=== PATIENT | female | born 1995 | race American Indian/Alaskan Native ===

== ENCOUNTER 2018-07-06 14:35 | Emergency (ER) | payer SELFPAY ==
[2018-07-06 15:29] VITALS: BP 127/87
--- NOTE | 2018-07-06 15:30 | Emergency Department Report ---
Chief Complaint: Headache Stated Complaint: SEVERE HEADACHE/BLURRED VISION/VOMITING Time Seen by Provider: 07/06/18 15:27 - HPI History of Present Illness: This is a 23 y.o. female that presents with headache x 1 week. Patient reports never having a headache like this before. - ROS Review of Systems: headache - Exam Vital Signs: Vital Signs 07/06/18 15:27 Temperature 98 F Pulse Rate 73 Respiratory 18 Rate Blood Pressure 127/87 O2 Sat by Pulse 99 Oximetry MSE screening note: Focused history and physical exam performed. Due to findings the following was ordered: labs and CT of head w/o contrast Fast track for further evaluation. ED Disposition for MSE Condition: Stable
[2018-07-06 16:05] LABS: HCG Qualitative,Urine Negative (Negative)
== END 2018-07-06 16:20 | disposition left against medical advice (07) ==
LOC: ED 14:35
DX: R51 Headache (principal); Z53.21 Procedure and treatment not carried out due to patient leaving prior to being seen by health care provider
CPT/HCPCS: 81025

== ENCOUNTER 2020-07-01 02:22 | Inpatient (IN) | payer MEDICAID ==
[2020-07-01] MEDS ORDERED: LACTATED RINGERS 1,000 ML ONE (02:56)
[2020-07-01] MEDS ORDERED: AMPICILLIN/NS 2 GM/100 ML 2 GM/100 ML BAG IV ONE ×2 (02:56→03:02)
[2020-07-01] MEDS ORDERED: ONDANSETRON 4 MG/2 ML INJ IV PRN (03:02)
[2020-07-01] MEDS ORDERED: ePHEDrine SULFATE 50 MG/1 ML INJ IV PRN ×2 (03:02→04:04)
[2020-07-01] MEDS ORDERED: MINERAL OIL 30 ML ORAL LIQD PO PRN (03:02)
[2020-07-01] MEDS ORDERED: fentaNYL 100 MCG/2 ML INJ IV PRN (03:02)
[2020-07-01] MEDS ORDERED: TERBUTALINE 1 MG/1 ML INJ SUB-Q PRN (03:02)
[2020-07-01] MEDS ORDERED: LIDOCAINE (2%) 20 MG/1 ML VIAL 20 ML MDV INFILTRATI ONE ×2 (03:02→10:29)
[2020-07-01] MEDS: LACTATED RINGERS 1,000 ML IV SCH ×2 (03:22→05:09)
--- NOTE | 2020-07-01 03:37 | History and Physical Report ---
History of Present Illness Date of examination: 07/01/20 Date of admission: 07/01/20 02:53 Chief complaint: contractions History of present illness: 38 yo at 40w4d with reportedly benign PNC with [facility] (need records) c/b Class II Obesity presenting with contractions, found to be in active labor. Denies LOF or VB. Denies PIH symptoms. Past History Past Medical History: no pertinent history Past Surgical History: no surgical history Family/Genetic History: none Social history: no significant social history - Obstetrical History : 2 Para: 0 Induced : 1 Number of Living Children: 0 Medications and Allergies Allergies Allergy/AdvReac Type Severity Reaction Status Date / Time No Known Allergies Allergy Unverified 07/06/18 14:38 Home Medications Medication Instructions Recorded Confirmed Last Taken Type Plus Tablet 1 tab PO DAILY 07/01/20 07/01/20 Unknown History Active Meds: Active Medications Ephedrine Sulfate (Ephedrine Sulfate 50 Mg/1 Ml Inj) 10 mg IV Q2M PRN PRN Reason: Hypotension Fentanyl (Fentanyl 100 Mcg/2 Ml Inj) 100 mcg IV Q2H PRN PRN Reason: Pain,Severe (7-10) LABOR PAIN Last Admin: 07/01/20 03:23 Dose: 100 mcg Documented by: Lactated Ringer's (Lactated Ringers) 1,000 mls @ 125 mls/hr IV DIRECT VERÓNICA Last Admin: 07/01/20 03:22 Dose: 125 mls/hr Documented by: Oxytocin/Sodium Chloride (Pitocin/Ns 30 Unit/500ml) 30 units in 500 mls @ 40 mls/hr IV TITR VERÓNICA; Protocol Ampicillin Sodium (Ampicillin/Ns 2 Gm/100 Ml) 2 gm in 100 mls @ 100 mls/hr IV ONCE ONE; Protocol Stop: 07/01/20 04:01 Last Admin: 07/01/20 03:21 Dose: 100 mls/hr Documented by: Mineral Oil (Mineral Oil 30 Ml Oral Liqd) 30 ml PO QHS PRN PRN Reason: Constipation Ondansetron HCl (Ondansetron 4 Mg/2 Ml Inj) 4 mg IV Q8H PRN PRN Reason: Nausea And Vomiting Terbutaline Sulfate (Terbutaline 1 Mg/1 Ml Inj) 0.25 mg SUB-Q ONCE PRN PRN Reason: Hyperstimulation/Hypertonicity Review of Systems All systems: negative (expect HPI) - Vital Signs Vital signs: Vital Signs Temp Resp 98.8 F 18 07/01/20 02:41 07/01/20 02:41 Temp Pulse Resp BP Pulse Ox 98.4 F 98 H 18 98 07/01/20 03:28 07/01/20 03:32 07/01/20 03:23 07/01/20 03:32 - Physical Exam Abdomen: Positive: normal appearance, normal bowel sounds Uterus: Positive: enlarged (gravid) - Obstetrical FHR: category 1 Uterine Contraction Monitor Mode: External Cervical Dilatation: 6 Uterine Contraction Pattern: Regular Results All other labs normal. Assessment and Plan - Patient Problems (1) Active labor at term Current Visit: Yes Status: Acute Plan to address problem: --Expectant management until PNC obtained ([facility]) --Stadol prn pain, epidural available --Anticipate --Amp given GBS unknown
[2020-07-01 03:39] LABS: Hematocrit 38.4 % (30.3-42.9); Hemoglobin 13.2 gm/dl (10.1-14.3); Mean Corpuscular HGB Conc 34 % (30-34); Mean Corpuscular Volume 95 fl (79-97); Platelet Count 189 K/mm3 (140-440); Red Blood Count 4.06 M/mm3 (3.65-5.03); Red Cell Distribution Width 14.7 % (13.2-15.2)
[2020-07-01 03:42] LABS: Bacteria,Urine 2+ /HPF (Negative); Bilirubin,Urine NEG (Negative); Blood,Urine LG (Negative); Color,Urine Red (Yellow); Mucus,Urine FEW /HPF; Urobilinogen,Urine < 2.0 mg/dL (<2.0)
[2020-07-01 03:43] LABS: RBC,Urine > 182.0 /HPF (0.0-6.0)
[2020-07-01 03:51] LABS: Amphetamine Screen,Urine PRESUMPTIVE NEGATIVE; Benzodiazepines Screen,Urine PRESUMPTIVE NEGATIVE; Cannabinoid Screen,Urine PRESUMPTIVE NEGATIVE; Cocaine Screen,Urine PRESUMPTIVE NEGATIVE; Methadone Screen,Urine PRESUMPTIVE NEGATIVE; Opiate Screen,Urine PRESUMPTIVE NEGATIVE
[2020-07-01] MEDS ORDERED: OXYTOCIN DRIP 30 UNITS/500 ML BAG IV SCH ×2 (04:00→11:00)
[2020-07-01] MEDS ORDERED: NALOXONE 2 MG/2 ML INJ IV PRN (04:04)
--- NOTE | 2020-07-01 04:04 | Anesthesia Consultation ---
Anesthesia Consult and Med Hx Date of service: 07/01/20 - Airway Anesthetic Teeth Evaluation: Good ROM Head & Neck: Adequate Mental/Hyoid Distance: Adequate Mallampati Class: Class II Intubation Access Assessment: Probably Good - Pulmonary Exam CTA: Yes - Cardiac Exam Cardiac Exam: RRR - Pre-Operative Health Status ASA Pre-Surgery Classification: ASA2 Proposed Anesthetic Plan: Epidural - Pulmonary Hx Asthma: No COPD: No Hx Pneumonia: No - Endocrine Hx End Stage Renal Disease: No - Other Systems Hx Alcohol Use: No Hx Obesity: Yes
[2020-07-01 04:09] LABS: Hepatitis C Virus Antibody Non-Reactive (NonReactive)
--- NOTE | 2020-07-01 04:23 | Progress Note ---
Labor Epidural - Labor Epidural Start Time: 04:10 Stop Time: 04:21 Performed by:: MEETA ANGUIANO Procedure: Patient is requesting epidural for labor pain. H&P, and labs reviewed. Procedure explained, questions answered, consent obtained. Patient in sitting position with blood pressure cuff and pulse ox on and working. Timeout performed immediately before start of procedure. Sterile chlorahexadine 0.5% prep/drape. 3 mL 1% lidocaine skin wheal at L[3]-L[4]. 18-gauge Tuohy epidural needle advanced to [id number] with saline at [7] cm. Epidural dexmedetomidine [30] mcg administered. Epidural catheter advanced to [12] cm, negative aspiration for blood and csf, negative test dose 3 ml 1.5% lidocaine with epinephrine. Sterile steri-strips and tegaderm applied, followed by tape reinforcement. Patient tolerated procedure well. Ed PATEL
[2020-07-01] MEDS ORDERED: fentaNYL-BUPIV 2 MCG/ML-0.125% 200 MCG/100 ML BAG EPIDURAL SCH (05:00)
[2020-07-01] MEDS ORDERED: AMPICILLIN/NS 1 GM/50 ML 1 GM/50 ML BAG IV SCH (07:00)
--- NOTE | 2020-07-01 10:09 | Progress Note ---
Assessment and Plan A: IUP at 40 4/7 weeks Category I tracing Active Labor GBS Negative P: AROM IUPC placed Start Low-Dose Pitocin Augmentation Anticipate Subjective - Subjective Date of service: 07/01/20 Patient reports: movement normal, other (Resting well under epidural anesthesia.), no new complaints Objective - Vital Signs Vital Signs: Vital Signs - 12hr 07/01/20 07/01/20 07/01/20 02:41 03:23 03:27 Temperature 98.8 F Pulse Rate 101 H Respiratory 18 18 Rate Blood Pressure Blood Pressure [Left] O2 Sat by Pulse 99 Oximetry 07/01/20 07/01/20 07/01/20 03:28 03:32 03:33 Temperature 98.4 F Pulse Rate 98 H 102 H Respiratory Rate Blood Pressure Blood Pressure [Left] O2 Sat by Pulse 98 91 Oximetry 07/01/20 07/01/20 07/01/20 03:34 03:37 03:41 Temperature Pulse Rate 105 H 102 H 105 H Respiratory Rate Blood Pressure 139/85 Blood Pressure [Left] O2 Sat by Pulse 100 91 Oximetry 07/01/20 07/01/20 07/01/20 03:42 03:47 03:52 Temperature Pulse Rate 98 H 111 H 108 H Respiratory Rate Blood Pressure Blood Pressure [Left] O2 Sat by Pulse 100 96 100 Oximetry 07/01/20 07/01/20 07/01/20 03:57 03:59 04:02 Temperature Pulse Rate 108 H 96 H 108 H Respiratory Rate Blood Pressure Blood Pressure [Left] O2 Sat by Pulse 98 94 100 Oximetry 07/01/20 07/01/20 07/01/20 04:07 04:08 04:12 Temperature Pulse Rate 108 H 108 H 111 H Respiratory Rate Blood Pressure Blood Pressure [Left] O2 Sat by Pulse 96 93 97 Oximetry 07/01/20 07/01/20 07/01/20 04:17 04:18 04:21 Temperature Pulse Rate 96 H 110 H 113 H Respiratory Rate Blood Pressure 129/88 Blood Pressure [Left] O2 Sat by Pulse 98 89 Oximetry 07/01/20 07/01/20 07/01/20 04:22 04:24 04:27 Temperature Pulse Rate 109 H 109 H 106 H Respiratory Rate Blood Pressure 129/79 123/78 Blood Pressure [Left] O2 Sat by Pulse 98 97 Oximetry 03/12/1407/01/20 07/01/20 04:28 04:30 04:32 Temperature Pulse Rate 104 H 93 H 93 H Respiratory Rate Blood Pressure 125/74 Blood Pressure [Left] O2 Sat by Pulse 79 L 85 Oximetry 07/01/20 07/01/20 07/01/20 04:33 04:36 04:37 Temperature Pulse Rate 94 H 93 H 94 H Respiratory Rate Blood Pressure 122/68 128/69 Blood Pressure [Left] O2 Sat by Pulse 80 L 87 Oximetry 07/01/20 07/01/20 07/01/20 04:39 04:42 04:45 Temperature Pulse Rate 88 96 H 89 Respiratory Rate Blood Pressure 120/62 120/62 122/64 Blood Pressure [Left] O2 Sat by Pulse 97 Oximetry 07/01/20 07/01/20 07/01/20 04:47 04:48 04:51 Temperature Pulse Rate 94 H 91 H 97 H Respiratory Rate Blood Pressure 121/62 124/59 Blood Pressure [Left] O2 Sat by Pulse 98 Oximetry 07/01/20 07/01/20 07/01/20 04:52 04:54 04:57 Temperature Pulse Rate 99 H 93 H 92 H Respiratory Rate Blood Pressure 122/60 120/59 Blood Pressure [Left] O2 Sat by Pulse 98 99 Oximetry 07/01/20 07/01/20 07/01/20 05:00 05:02 05:03 Temperature Pulse Rate 93 H 92 H 90 Respiratory Rate Blood Pressure 118/59 113/57 Blood Pressure [Left] O2 Sat by Pulse 98 Oximetry 07/01/20 07/01/20 07/01/20 05:06 05:07 05:09 Temperature Pulse Rate 90 89 94 H Respiratory Rate Blood Pressure 117/60 118/62 Blood Pressure [Left] O2 Sat by Pulse 96 Oximetry 07/01/20 07/01/20 07/01/20 05:12 05:15 05:17 Temperature Pulse Rate 91 H 90 92 H Respiratory Rate Blood Pressure 116/62 117/62 Blood Pressure [Left] O2 Sat by Pulse 97 96 Oximetry 07/01/20 07/01/20 07/01/20 05:18 05:21 05:22 Temperature Pulse Rate 96 H 93 H 96 H Respiratory Rate Blood Pressure 114/60 108/59 Blood Pressure [Left] O2 Sat by Pulse 96 Oximetry 07/01/20 07/01/20 07/01/20 05:24 05:27 05:30 Temperature Pulse Rate 99 H 91 H 94 H Respiratory Rate Blood Pressure 115/63 126/67 121/64 Blood Pressure [Left] O2 Sat by Pulse 97 Oximetry 07/01/20 07/01/20 07/01/20 05:32 05:33 05:36 Temperature Pulse Rate 97 H 95 H 93 H Respiratory Rate Blood Pressure 113/61 124/70 Blood Pressure [Left] O2 Sat by Pulse 97 Oximetry 07/01/20 07/01/20 07/01/20 05:37 05:39 05:42 Temperature Pulse Rate 97 H 93 H 95 H Respiratory Rate Blood Pressure 124/69 121/66 Blood Pressure [Left] O2 Sat by Pulse 99 98 Oximetry 07/01/20 07/01/20 07/01/20 05:45 05:47 05:48 Temperature Pulse Rate 93 H 92 H 94 H Respiratory Rate Blood Pressure 125/65 132/66 Blood Pressure [Left] O2 Sat by Pulse 98 Oximetry 07/01/20 07/01/20 07/01/20 05:51 05:52 05:54 Temperature Pulse Rate 94 H 91 H 95 H Respiratory Rate Blood Pressure 128/66 127/65 Blood Pressure [Left] O2 Sat by Pulse 98 Oximetry 07/01/20 07/01/20 07/01/20 05:57 06:00 06:02 Temperature Pulse Rate 94 H 96 H 96 H Respiratory Rate Blood Pressure 137/86 141/88 Blood Pressure [Left] O2 Sat by Pulse 98 99 Oximetry 07/01/20 07/01/20 07/01/20 06:07 06:12 06:17 Temperature Pulse Rate 90 93 H 94 H Respiratory Rate Blood Pressure Blood Pressure [Left] O2 Sat by Pulse 98 98 98 Oximetry 07/01/20 07/01/20 07/01/20 06:22 06:27 06:32 Temperature Pulse Rate 95 H 98 H 95 H Respiratory Rate Blood Pressure Blood Pressure [Left] O2 Sat by Pulse 98 98 97 Oximetry 07/01/20 07/01/20 07/01/20 06:34 06:37 06:42 Temperature Pulse Rate 95 H 97 H 94 H Respiratory Rate Blood Pressure 130/78 Blood Pressure [Left] O2 Sat by Pulse 97 95 Oximetry 07/01/20 07/01/20 07/01/20 06:47 06:52 06:57 Temperature Pulse Rate 113 H 98 H 96 H Respiratory Rate Blood Pressure Blood Pressure [Left] O2 Sat by Pulse 95 98 97 Oximetry 07/01/20 07/01/20 07/01/20 07:02 07:04 07:07 Temperature Pulse Rate 98 H 99 H 109 H Respiratory Rate Blood Pressure 132/81 Blood Pressure [Left] O2 Sat by Pulse 98 99 Oximetry 07/01/20 07/01/20 07/01/20 07:09 07:12 07:17 Temperature 98.8 F Pulse Rate 97 H 101 H 101 H Respiratory 18 Rate Blood Pressure Blood Pressure 132/81 [Left] O2 Sat by Pulse 99 98 99 Oximetry 07/01/20 07/01/20 07/01/20 07:22 07:27 07:32 Temperature Pulse Rate 106 H 108 H 98 H Respiratory Rate Blood Pressure Blood Pressure [Left] O2 Sat by Pulse 99 99 100 Oximetry 07/01/20 07/01/20 07/01/20 07:34 07:37 07:42 Temperature Pulse Rate 96 H 102 H 104 H Respiratory Rate Blood Pressure 131/80 Blood Pressure [Left] O2 Sat by Pulse 99 99 Oximetry 07/01/20 07/01/20 07/01/20 07:47 07:52 07:57 Temperature Pulse Rate 102 H 102 H 102 H Respiratory Rate Blood Pressure Blood Pressure [Left] O2 Sat by Pulse 99 98 99 Oximetry 07/01/20 07/01/20 07/01/20 08:02 08:03 08:07 Temperature Pulse Rate 100 H 100 H 105 H Respiratory Rate Blood Pressure 131/77 Blood Pressure [Left] O2 Sat by Pulse 99 98 Oximetry 07/01/20 07/01/20 07/01/20 08:12 08:17 08:22 Temperature Pulse Rate 109 H 105 H 114 H Respiratory Rate Blood Pressure Blood Pressure [Left] O2 Sat by Pulse 99 97 99 Oximetry 07/01/20 07/01/20 07/01/20 08:27 08:32 08:33 Temperature Pulse Rate 103 H 106 H 102 H Respiratory Rate Blood Pressure 135/73 Blood Pressure [Left] O2 Sat by Pulse 100 99 Oximetry 07/01/20 07/01/20 07/01/20 08:37 08:42 08:47 Temperature Pulse Rate 111 H 107 H 106 H Respiratory Rate Blood Pressure Blood Pressure [Left] O2 Sat by Pulse 98 98 100 Oximetry 07/01/20 07/01/20 07/01/20 08:52 08:57 09:02 Temperature Pulse Rate 106 H 105 H 103 H Respiratory Rate Blood Pressure Blood Pressure [Left] O2 Sat by Pulse 99 99 99 Oximetry 07/01/20 07/01/20 07/01/20 09:03 09:07 09:12 Temperature Pulse Rate 108 H 108 H 106 H Respiratory Rate Blood Pressure 135/74 Blood Pressure [Left] O2 Sat by Pulse 99 100 Oximetry 07/01/20 07/01/20 07/01/20 09:17 09:22 09:27 Temperature Pulse Rate 111 H 108 H 107 H Respiratory Rate Blood Pressure Blood Pressure [Left] O2 Sat by Pulse 100 99 99 Oximetry 07/01/20 07/01/20 07/01/20 09:32 09:33 09:37 Temperature Pulse Rate 111 H 111 H 108 H Respiratory Rate Blood Pressure 138/78 Blood Pressure [Left] O2 Sat by Pulse 99 98 Oximetry 07/01/20 07/01/20 07/01/20 09:42 09:47 09:52 Temperature Pulse Rate 111 H 122 H 120 H Respiratory Rate Blood Pressure Blood Pressure [Left] O2 Sat by Pulse 99 99 100 Oximetry 07/01/20 07/01/20 07/01/20 09:57 10:02 10:03 Temperature Pulse Rate 129 H 127 H 127 H Respiratory Rate Blood Pressure 118/60 Blood Pressure [Left] O2 Sat by Pulse 99 98 Oximetry - Exam Breasts: normal Cardiovascular: Regular rate Lungs: Clear to auscultation, Normal air movement Abdomen: Present: normal appearance, soft Uterus: Present: normal, firm, fundal height above umbilicus FHR: category 1 Uterine Contraction Monitor Mode: External Cervical Dilatation: 8 (Large amount of thin green meconium stained fluid noted upon AROM at 0958. ) Cervical Effacement Percentage: 100 station: 0 Uterine Contraction Pattern: Irregular Uterine Tone Measurement Phase: Resting Uterine Contraction Intensity: Moderate Extremities: normal - Labs Labs: Abnormal Labs 07/01/20 07/01/20 03:20 03:21 WBC 12.8 H Urine pH 8.0 H Urine WBC (Auto) 25.0 H U Epithel Cells (Auto) 17.0 H Laboratory Results - last 24 hr 07/01/20 07/01/20 07/01/20 03:20 03:20 03:21 WBC 12.8 H RBC 4.06 Hgb 13.2 Hct 38.4 MCV 95 MCH 32 MCHC 34 RDW 14.7 Plt Count 189 Urine Color Red Urine Turbidity Slightly-cloudy Urine pH 8.0 H Ur Specific [place] 1.005 Urine Protein 100 mg/dl Urine Glucose (UA) 50 Urine Ketones Neg Urine Blood Lg Urine Nitrite Neg Urine Bilirubin Neg Urine Urobilinogen < 2.0 Ur Leukocyte Esterase Sm Urine WBC (Auto) 25.0 H Urine RBC (Auto) > 182.0 U Epithel Cells (Auto) 17.0 H Urine Bacteria (Auto) 2+ Urine Mucus Few Urine Yeast (Budding) 1+ Urine Opiates Screen Presumptive negative Urine Methadone Screen Presumptive negative Ur Barbiturates Screen Presumptive negative Ur Phencyclidine Scrn Presumptive negative Ur Amphetamines Screen Presumptive negative U Benzodiazepines Scrn Presumptive negative Urine Cocaine Screen Presumptive negative U Marijuana (THC) Screen Presumptive negative Drugs of Abuse Note Disclamer Syphilis IgG Antibody Hep Bs Antigen Hepatitis C Antibody HIV 1&2 Antibody Rapid HIV P24 Antigen Rubella IgG Antibody Blood Type Antibody Screen 07/01/20 07/01/20 03 03:21 03:21 03:21 WBC RBC Hgb Hct MCV MCH MCHC RDW Plt Count Urine Color Urine Turbidity Urine pH Ur Specific [place] Urine Protein Urine Glucose (UA) Urine Ketones Urine Blood Urine Nitrite Urine Bilirubin Urine Urobilinogen Ur Leukocyte Esterase Urine WBC (Auto) Urine RBC (Auto) U Epithel Cells (Auto) Urine Bacteria (Auto) Urine Mucus Urine Yeast (Budding) Urine Opiates Screen Urine Methadone Screen Ur Barbiturates Screen Ur Phencyclidine Scrn Ur Amphetamines Screen U Benzodiazepines Scrn Urine Cocaine Screen U Marijuana (THC) Screen Drugs of Abuse Note Syphilis IgG Antibody Nonreactive Hep Bs Antigen Non-reactive Hepatitis C Antibody HIV 1&2 Antibody Rapid HIV P24 Antigen Rubella IgG Antibody Blood Type B POSITIVE Antibody Screen Negative 07/01/20 07/01/20 03:21 03:21 WBC RBC Hgb Hct MCV MCH MCHC RDW Plt Count Urine Color Urine Turbidity Urine pH Ur Specific [place] Urine Protein Urine Glucose (UA) Urine Ketones Urine Blood Urine Nitrite Urine Bilirubin Urine Urobilinogen Ur Leukocyte Esterase Urine WBC (Auto) Urine RBC (Auto) U Epithel Cells (Auto) Urine Bacteria (Auto) Urine Mucus Urine Yeast (Budding) Urine Opiates Screen Urine Methadone Screen Ur Barbiturates Screen Ur Phencyclidine Scrn Ur Amphetamines Screen U Benzodiazepines Scrn Urine Cocaine Screen U Marijuana (THC) Screen Drugs of Abuse Note Syphilis IgG Antibody Hep Bs Antigen Hepatitis C Antibody Non-reactive HIV 1&2 Antibody Rapid Non react HIV P24 Antigen Non react Rubella IgG Antibody Immune Blood Type Antibody Screen
--- NOTE | 2020-07-01 11:29 | Procedure Note ---
OB Delivery Note - Delivery Date of Delivery: 07/01/20 (1103) Surgeon: DEANDRE TORIBIO Estimated blood loss: 300cc - Vaginal Delivery presentation: vertex Delivery position: OA Intrapartum events: meconium Delivery induction: none Delivery augmentation: rupture of membranes, pitocin Delivery monitor: external FHT, internal uterine Route of delivery: Delivery placenta: spontaneous Delivery cord: 3 umbilical vessels Episiotomy: none Delivery laceration: other (right labial) Delivery repair: vicryl Anesthesia: epidural Delivery comments: of a live 8'4 female with Apgars of 7 and 9 over a right labial laceration under epidural anesthesia at 1103 on 07/01/2020. Cord double clamped and cut by ALVIN Toribio. Infant directly to warmer to awaiting WEST RN. Spontaneous delivery of placenta complete and intact with [place] side presenting at 1116. Fundus is firm and midline, located 4 below the U. Lochia is scant. Right labial laceration repaired with 2-0 vicryl on a SH. Placenta to be discarded. - A at 1 minute: 7 at 5 minutes: 9 Infant Gender: Female (8'4)
[2020-07-01] MEDS ORDERED: PROMETHAZINE 25 MG TAB PO PRN (12:00)
[2020-07-01] MEDS ORDERED: diphenhydrAMINE 25 MG CAP PO PRN (12:00)
[2020-07-01] MEDS ORDERED: WITCH HAZEL/ GLYCERIN PAD TP PRN (12:00)
[2020-07-01] MEDS ORDERED: HYDROcodone/ACETAMINOPHEN 5-325 MG TAB PO PRN (12:00)
[2020-07-01] MEDS ORDERED: oxyCODONE /ACETAMINOPHEN 5-325MG TAB PO PRN (12:00)
[2020-07-01] MEDS ORDERED: LANOLIN/ZINC/DIMETHICONE (LANSINOH) 7 GM TP PRN (12:00)
[2020-07-01] MEDS: IBUPROFEN 600 MG TAB PO SCH ×2 (14:43→23:28)
[2020-07-01] MEDS: AMPICILLIN/NS 2 GM/100 ML 2 GM/100 ML BAG IV SCH ×2 (14:45→20:00)
[2020-07-01] MEDS ORDERED: SODIUM CHLORIDE 0.9% 1000 ML 1,000 ML IV SCH (19:45)
[2020-07-02 00:25] LABS: Hematocrit 35.3 % (30.3-42.9); Hemoglobin 12.1 gm/dl (10.1-14.3)
[2020-07-02] MEDS: AMPICILLIN/NS 2 GM/100 ML 2 GM/100 ML BAG IV SCH ×4 (01:29→20:08)
[2020-07-02] MEDS: IBUPROFEN 600 MG TAB PO SCH ×4 (05:09→23:05)
--- NOTE | 2020-07-02 10:27 | Progress Note ---
Assessment and Plan - Patient Problems (1) Status post normal vaginal delivery Current Visit: Yes Status: Acute Plan to address problem: Continue routine PP orders Continue Abt therapy as ordered Anticipate d/c in 24 hrs if remains afebrile Subjective - Subjective Date of service: 07/02/20 Principal diagnosis: S/P ; PPD#1 Interval history: See admission H & P; OB delivery summary and PP progress notes Patient reports: appetite normal, voiding normally, pain well controlled, flatus, ambulating normally : doing well, bottle feeding (and ) Objective - Vital Signs Latest vital signs: Vital Signs Temp Pulse Resp BP BP Pulse Ox 07/02/20 08:48 97.6 F 83 20 98/56 98 07/02/20 01:20 97.5 F L 99 H 20 112/63 99 07/01/20 20:11 97.2 F L 102 H 20 103/59 96 07/01/20 17:15 112 H 07/01/20 16:10 99.1 F 129 H 20 112/55 92 07/01/20 14:05 101.5 F H 116 H 20 130/75 98 07/01/20 13:44 116 H 120/74 07/01/20 13:41 111 H 141/74 07/01/20 13:30 99.1 F 118 H 16 133/71 99 07/01/20 13:26 118 H 133/71 07/01/20 13:11 121 H 137/70 07/01/20 13:07 122 H 136/63 07/01/20 13:00 127 H 137/63 07/01/20 12:58 133 H 178/82 07/01/20 12:55 113 H 133/70 07/01/20 12:53 102.5 F H 07/01/20 12:32 110 H 100 07/01/20 12:27 114 H 143/76 100 07/01/20 12:22 114 H 100 07/01/20 12:17 126 H 98 07/01/20 12:12 128 H 148/65 99 07/01/20 12:07 121 H 100 07/01/20 12:02 121 H 99 07/01/20 11:57 125 H 147/68 99 07/01/20 11:52 124 H 99 07/01/20 11:47 125 H 100 07/01/20 11:42 132 H 99 03/08/21 11:41 137 H 155/67 07/01/20 11:39 142 H 151/67 07/01/20 11:37 138 H 148/63 98 07/01/20 11:36 123 H 173/74 07/01/20 11:33 127 H 114/87 07/01/20 11:32 155 H 121/71 99 07/01/20 11:29 125 H 115/65 07/01/20 11:27 126 H 127/69 99 07/01/20 11:25 130 H 130/75 07/01/20 11:23 125 H 135/67 07/01/20 11:22 126 H 100 07/01/20 11:17 122 H 100 07/01/20 11:12 121 H 100 07/01/20 11:07 122 H 100 07/01/20 11:04 153 H 148/70 07/01/20 11:02 169 H 100 07/01/20 10:57 128 H 99 07/01/20 10:52 148 H 100 07/01/20 10:47 171 H 99 07/01/20 10:44 56 L 93 07/01/20 10:42 142 H 100 07/01/20 10:37 131 H 100 07/01/20 10:33 139 H 135/89 07/01/20 10:32 162 H 100 07/01/20 10:27 122 H 99 Intake and Output 07/01/20 07/02/20 07/02/20 23:59 07:59 15:59 Intake Total 590 340 240 Output Total 1300 Balance -710 340 240 Intake: IV 150 100 AMPICILLIN/NS 2 GM/100 ML 100 100 2 gm In 100 ml @ 100 mls /hr IV Q6H VERÓNICA Rx#: [id number] CLEOCIN 900 MG/50 mL 900 50 mg In 50 ml @ 100 mls/hr IV Q8H VERÓNICA Rx#:[id number] Oral 440 240 240 Output: Urine 1300 Void 1300 Other: Total, Intake Amount 120 240 240 Total, Output Amount 700 # Voids Void 1 1 1 - Exam Breasts: Present: normal Cardiovascular: Present: Regular rate Lungs: Present: Normal air movement Abdomen: Present: soft Uterus: Present: firm, fundal height below umbilicus (U-2) Extremities: Present: normal Deep Tendon Reflex Grade: Normal +2 Incision: Present: other (Rt labial laceration, healing as expected)
--- NOTE | 2020-07-02 17:18 | Post Anesthesia Evaluation ---
- Post Anesthesia Evaluation Patient Participated: Yes Airway Patent: Yes Stable Respiratory Function: Yes Nausea/Vomiting: No Temp > 96.8F: Yes Pain Manageable: Yes Adequeate Hydration: Yes Anesthesia Complications: No Block Receding Appropriately: Yes
[2020-07-02] MEDS: FLUCONAZOLE 100 MG TAB PO SCH (17:57)
[2020-07-03] MEDS: AMPICILLIN/NS 2 GM/100 ML 2 GM/100 ML BAG IV SCH ×2 (02:01→07:59)
[2020-07-03] MEDS: IBUPROFEN 600 MG TAB PO SCH ×2 (05:26→12:26)
[2020-07-03] MEDS: FLUCONAZOLE 100 MG TAB PO SCH (09:36)
--- NOTE | 2020-07-03 11:45 | Progress Note ---
Assessment and Plan A: Day 2 Stable P: Follow routine orders Discharge to home today Return to clinic in 6 weeks for check Subjective - Subjective Date of service: 07/03/20 Principal diagnosis: S/P ; PPD#2 Patient reports: appetite normal, voiding normally, pain well controlled, flatus, bowel movement, ambulating normally [place]: doing well, bottle feeding Objective - Vital Signs Latest vital signs: Vital Signs Temp Pulse Resp BP BP Pulse Ox 07/03/20 01:11 98.7 F 74 18 102/74 07/02/20 16:07 97.2 F L 83 18 112/70 96 Intake and Output 07/02/20 07/03/20 07/03/20 22:59 06:59 14:59 Intake Total 1330 600 480 Balance 1330 600 480 Intake: IV 250 100 AMPICILLIN/NS 2 GM/100 ML 200 100 2 gm In 100 ml @ 100 mls /hr IV Q6H VERÓNICA Rx#: [id number] CLEOCIN 900 MG/50 mL 900 50 mg In 50 ml @ 100 mls/hr IV Q8H VERÓNICA Rx#:[id number] Oral 780 200 120 Intake, Free Water 300 300 360 Other: Total, Intake Amount 420 200 120 # Voids Void 1 1 1 - Exam Breasts: Present: normal Cardiovascular: Present: Regular rate, Normal S1, Normal S2 Lungs: Present: Clear to auscultation, Normal air movement Abdomen: Present: normal appearance, soft, normal bowel sounds Uterus: Present: normal, firm, fundal height below umbilicus Extremities: Present: normal
--- NOTE | 2020-07-03 11:49 | Discharge Summary ---
Providers - Providers Date of Admission: 07/01/20 03:02 Date of discharge: 07/03/20 Attending physician: KEVIN REY JR, MD Primary care physician: KEVIN REY JR, MD Hospitalization Reason for admission: active labor Delivery: Episiotomy: none Laceration: other (right labial) Other procedures: none complications: other (fever; resolved at present) Discharge diagnosis: IUP at term delivered [place] baby: female Condition at discharge: Good Disposition: DC-01 TO HOME OR SELFCARE Plan - Provider Discharge Summary Activity: routine, no sex for 6 weeks, no heavy lifting 4 weeks, no strenuous exercise Diet: routine Instructions: routine Additional instructions: [] Smoking cessation referral if applicable(refer to patient education folder for contact #) [] Refer to [facility] Booklet Call your doctor immediately for: * Fever > 100.5 * Heavy vaginal bleeding ( >1 pad per hour) * Severe persistent headache * Shortness of breath * Reddened, hot, painful area to leg or breast * Drainage or odor from incision. * Keep incision clean and dry at all times and follow doctor's instructions regarding bathing/showering - Follow up plan Follow up: KEVIN REY JR, MD [Primary Care Provider] - 6 Weeks
[2020-07-03 13:56] VITALS: BP 124/84
== END 2020-07-03 14:15 | disposition home or self-care (01) | DRG 774 ==
LOC: TRG 02:22 → APU 02:29 → TRG 02:53 → LD 02:53 → OBSVTOIN 03:02 → OB 14:22
PROVIDERS: ADMIT Obstetrics & Gynecology; ATTEND Obstetrics & Gynecology
PROC: 10E0XZZ Delivery of Products of Conception, External Approach (ICD-10-PCS; principal; 2020-07-01)
PROC: 3E0R3BZ Introduction of Anesthetic Agent into Spinal Canal, Percutaneous Approach (ICD-10-PCS; 2020-07-01)
PROC: 00HU33Z Insertion of Infusion Device into Spinal Canal, Percutaneous Approach (ICD-10-PCS; 2020-07-01)
PROC: 0HQ9XZZ Repair Perineum Skin, External Approach (ICD-10-PCS; 2020-07-01)
PROC: 10907ZC Drainage of Amniotic Fluid, Therapeutic from Products of Conception, Via Natural or Artificial Opening (ICD-10-PCS; 2020-07-01)
PROC: 10H07YZ Insertion of Other Device into Products of Conception, Via Natural or Artificial Opening (ICD-10-PCS; 2020-07-01)
DX: O77.0 Labor and delivery complicated by meconium in amniotic fluid (principal); O86.4 Pyrexia of unknown origin following delivery; O70.0 First degree perineal laceration during delivery; Z20.822 Contact with and (suspected) exposure to COVID-19; Z3A.40 40 weeks gestation of pregnancy; Z37.0 Single live birth
CPT/HCPCS: 36415; 59025; 80307; 81001; 85014; 85018; 85027; 86592; 86706; 86762; 86803; 86850; 86900; 86901; 87086; 87806; G0378; J0290; J3010; J7030; J7120; U0003

== ENCOUNTER 2021-11-10 06:15 | Emergency (ER) | payer MEDICAID ==
[2021-11-10 06:43] VITALS: BP 119/65
[2021-11-10 08:31] LABS: Hematocrit 43.6 % (30.3-42.9); Hemoglobin 15.1 gm/dl (10.1-14.3); Mean Corpuscular HGB Conc 35 % (30-34); Mean Corpuscular Volume 97 fl (79-97); Platelet Count 223 K/mm3 (140-440); Red Blood Count 4.49 M/mm3 (3.65-5.03); Red Cell Distribution Width 13.9 % (13.2-15.2)
[2021-11-10 08:56] LABS: Blood Urea Nitrogen 10 mg/dL (7-17); Calcium 9.2 mg/dL (8.4-10.2); Hemolysis Index 6
[2021-11-10 09:06] LABS: BUN/Creatinine Ratio 14
--- NOTE | 2021-11-10 10:13 | Ultrasound Report ---
ULTRASOUND OBSTETRIC INDICATION / CLINICAL INFORMATION: vag bleed in preg. Clinical Gestational Age (GA) in weeks, days: 6, 5 TECHNIQUE: Transabdominal. COMPARISON: None available. FINDINGS: GESTATIONAL SAC: Not seen YOLK SAC: Not seen EMBRYO/FETUS: Not seen ADNEXA: No significant abnormality. FREE FLUID: None. ADDITIONAL FINDINGS: None. IMPRESSION: No evidence of intrauterine gestation. In the presence of a positive test this is a pregnan cy of unknown location and the differential includes very early versus missed vers us ectopic. Recommend repeat ultrasound in 7-10 days. Signer Name: Kolton Ferrer DO Signed: 11/10/2021 10:08 AM Workstation Name: [id number]
--- NOTE | 2021-11-10 10:23 | Emergency Department Report ---
ED Female HPI - General Chief complaint: Vaginal Bleeding Stated complaint: VAGINAL BLEEDING/ Time Seen by Provider: 11/10/21 09:03 Source: patient Mode of arrival: Ambulatory Limitations: No Limitations - History of Present Illness Initial comments: Patient is a 26-year-old female comes to the emergency room with vaginal bleeding during . She had a home test that was positive. Last menstrual cycle 6 1. This is her fifth . She has 1 living child. She terminated the other pregnancies. She reports the bleeding to be moderate. She has no pain. No discharge. No fever or chills. MD Complaint: vaginal bleeding -: Gradual, days(s) Improves with: none Worsens with: none Are you Now?: Yes Associated Symptoms: denies other symptoms, vaginal bleeding - Related Data Sexually active: Yes Home Medications Medication Instructions Recorded Confirmed Last Taken Plus Tablet 1 tab PO DAILY 07/01/20 07/01/20 Unknown Allergies Allergy/AdvReac Type Severity Reaction Status Date / Time No Known Allergies Allergy Unverified 07/06/18 14:38 ED Review of Systems ROS: Stated complaint: VAGINAL BLEEDING/ Other details as noted in HPI Comment: All other systems reviewed and negative ED Past Medical Hx - Past Medical History Hx Congestive Heart Failure: No Hx Diabetes: No Hx Asthma: No Hx COPD: No - Family History Family history: no significant - Social History Smoking Status: Unknown if ever smoked Substance Use Type: None - Medications Home Medications: Home Medications Medication Instructions Recorded Confirmed Last Taken Type Plus Tablet 1 tab PO DAILY 07/01/20 07/01/20 Unknown History ED Physical Exam - General Limitations: No Limitations General appearance: alert, in no apparent distress - Head Head exam: Present: atraumatic, normocephalic - Eye Eye exam: Present: normal appearance - ENT ENT exam: Present: mucous membranes moist - Neck Neck exam: Present: normal inspection - Respiratory Respiratory exam: Present: normal lung sounds bilaterally. Absent: respiratory distress - Cardiovascular Cardiovascular Exam: Present: regular rate, normal rhythm. Absent: systolic murmur, diastolic murmur, rubs, gallop - GI/Abdominal GI/Abdominal exam: Present: soft, normal bowel sounds - Extremities Exam Extremities exam: Present: normal inspection - Back Exam Back exam: Present: normal inspection - Neurological Exam Neurological exam: Present: alert, oriented X3 - Psychiatric Psychiatric exam: Present: normal affect, normal mood - Skin Skin exam: Present: warm, dry, intact, normal color. Absent: rash ED Course Vital Signs 11/10/21 06:39 Temperature 97.9 F Pulse Rate 77 Respiratory 14 Rate Blood Pressure 119/65 Blood Pressure 119/65 [Right] O2 Sat by Pulse 98 Oximetry ED Medical Decision Making - Lab Data Result diagrams: 11/10/21 07:55 11/10/21 07:55 - Radiology Data Radiology results: report reviewed, image reviewed See report - Medical Decision Making Vital Signs (72 hours) 11/10/21 06:39 Temperature 97.9 F Pulse Rate 77 Respiratory 14 Rate Blood Pressure 119/65 Blood Pressure 119/65 [Right] O2 Sat by Pulse 98 Oximetry Vital Signs 11/10/21 06:39 Temperature 97.9 F Pulse Rate 77 Respiratory 14 Rate Blood Pressure 119/65 Blood Pressure 119/65 [Right] O2 Sat by Pulse 98 Oximetry Labs 11/10/21 11/10/21 11/10/21 07:55 07:55 07:55 WBC 10.8 RBC 4.49 Hgb 15.1 H Hct 43.6 H MCV 97 MCH 34 H MCHC 35 H RDW 13.9 Plt Count 223 Sodium 139 Potassium 4.4 Chloride 105.3 Carbon Dioxide 25 Anion Gap 13 BUN 10 Creatinine 0.7 Estimated GFR > 60 BUN/Creatinine Ratio 14 Glucose 93 Calcium 9.2 HCG, Quant 19.99 H Blood Type Ord Rhogam Gestat Weeks 11/10/21 07:55 WBC RBC Hgb Hct MCV MCH MCHC RDW Plt Count Sodium Potassium Chloride Carbon Dioxide Anion Gap BUN Creatinine Estimated GFR BUN/Creatinine Ratio Glucose Calcium HCG, Quant Blood Type B POSITIVE Ord Rhogam Gestat Weeks Rh pos Labs noted. hCG 19. Rh+. Ultrasound noted. Findings discussed with patient. Patient's abdominal exam is unremarkable. She has no CVA tenderness. No fever or chills. No vaginal discharge. She is ambulatory, nontoxic [id number]. Patient being discharged home with discharge plan of care including diet, activity, medications and follow-up. She understands she needs to see OB in 48 hours for repeat blood work. - Differential Diagnosis Rule out AB, ectopic Critical care attestation.: If time is entered above; I have spent that time in minutes in the direct care of this critically ill patient, excluding procedure time. ED Disposition Clinical Impression: Vaginal bleeding in Disposition: HOME / SELF CARE / HOMELESS Is pt being admited?: No Does the pt Need Aspirin: No Condition: Stable Instructions: Activity Restriction During Additional Instructions: Tylenol for pain Pelvic rest Follow-up with PATHOLOGY TECHNICIAN in 48 hours as we discussed. Referral below. Referrals: WOJCIECH HAYES MD [Staff Physician] - 3-5 Days Forms: Work/School Release Form(ED) Time of Disposition: 10:29
[2021-11-10 10:43] LABS: Bilirubin,Urine NEG (Negative); Blood,Urine LG (Negative); Color,Urine Yellow (Yellow); Protein,Urine <15 mg/dL mg/dL (Negative); Urobilinogen,Urine < 2.0 mg/dL (<2.0)
== END 2021-11-10 11:00 | disposition home or self-care (01) ==
LOC: ED 06:15
DX: O20.9 Hemorrhage in early pregnancy, unspecified (principal); Z3A.01 Less than 8 weeks gestation of pregnancy
CPT/HCPCS: 36415; 76801; 80048; 81001; 84702; 85027; 86900; 86901; 99284